=== PATIENT | male | born 1970 | race Caucasian/White ===

== ENCOUNTER 2023-10-06 08:37 | Day surgery (SDC) | payer OTHER ==
[2023-10-06] MEDS: IV FLUID CONTINUATION 1,000 ML IV ONE (09:00)
[2023-10-06] MEDS ORDERED: LIDOCAINE 1% (10MG/ML) FOR IV START INTRADERMA PRN (09:05)
[2023-10-06 09:20] VITALS: TEMP 98.5
[2023-10-06] MEDS: LACTATED RINGERS 1,000 ML IV SCH (09:21)
[2023-10-06] MEDS ORDERED: PROPOFOL 10 MG/ML 20 ML VIAL IV ONE (09:47)
[2023-10-06] MEDS ORDERED: LIDOCAINE 1% INJ 10MG/ML (20 ML MDV) ONE (09:47)
--- NOTE | 2023-10-06 10:07 | P.PCN ---
Date of Procedure: 10/06/23 Procedure(s) Performed: BRIEF HISTORY: Patient is a 53-year-old pleasant white male scheduled for an elective colonoscopy as a part of screening for colon cancer and history of ulcerative colitis diagnosed 20 years ago. He has been in clinical remission for more than 15 years. Presently on no maintenance medications. PROCEDURE PERFORMED: Colonoscopy with random biopsies.. PREOPERATIVE DIAGNOSIS: History of ulcerative colitis. IV sedation per Anesthesia. PROCEDURE: After informed consent was obtained, the patient, was brought into the endoscopy unit. IV sedation was administered by Anesthesia under continuous monitoring. Digital rectal examination was normal. Initially the Olympus CF-160 flexible video colonoscope was then inserted in the rectum, gradually advanced into the cecum without any difficulty. Careful examination was performed as the scope was gradually being withdrawn. Ileocecal valve and the appendiceal orifice were visualized and appeared normal. Prep was excellent. Mucosa of the cecum, ascending colon, transverse colon, descending colon, sigmoid colon, and rectum appeared normal. Scattered pseudopolyps noted in the transverse colon. Biopsies were done for the second recommend every 10 cm intervals to rule out dysplasia. Retroflexion was performed in the rectum and no lesions were seen. The patient tolerated the procedure well. IMPRESSION: Scattered pseudopolyps in the transverse colon No evidence of active colitis or colorectal neoplasia RECOMMENDATIONS: Findings of this examination were discussed with the patient as well as her family. He was advised to follow-up with the biopsy results. If the biopsy does not show any evidence of dysplasia he can have repeat colonoscopy in 3 years..
[2023-10-06 10:28] VITALS: BP 124/84; PULSE 63; RESP 16
== END 2023-10-06 10:47 | disposition home or self-care (01) ==
LOC: ORWHC2ENDO 08:37
PROVIDERS: ATTEND Internal Medicine Gastroenterology
DX: Z12.11 Encounter for screening for malignant neoplasm of colon (principal); K62.1 Rectal polyp; K51.90 Ulcerative colitis, unspecified, without complications; G47.33 Obstructive sleep apnea (adult) (pediatric); K21.9 Gastro-esophageal reflux disease without esophagitis; Z86.010 Personal history of colon polyps; Z79.899 Other long term (current) drug therapy; Z87.891 Personal history of nicotine dependence
CPT/HCPCS: 88305; 45380; J2001; J2704